=== PATIENT | female | born 1940 | race Two or more races ===

== ENCOUNTER 2016-06-20 13:59 | Outpatient (CLI) | payer MEDICARE, BC ==
[~2016-06-20 13:59] MED LIST: AMBIEN10 M1 ORAL; LEVOTHYROXINE50 MCG ORAL
--- NOTE | 2016-06-20 14:43 | GI Progress Note ---
Assessment/Plan Problems: (1) Abdominal bloating ICD Codes: R14.0 - Abdominal distension (gaseous) SNOMED: 620980113 (2) Colonoscopy planned SNOMED: 074062999 Status: stable Status Narrative Seen with Dr. Bernal. Assessment/Plan Pt will contact to scheduled for EGD/Colonoscopy. - CLD & Suprep instructions given and acknowledged by patient. Subjective Subjective abdominal bloating last visit 02/2015 for rectal bleed, refused colonoscopy at the time last colonoscopy in 2007 Objective T 97.8 BP 111/62 P 65 97 RA WT 131 (denies wt loss) General Appearance: no apparent distress, alert Cardiovascular: normal rate Respiratory/Chest: normal breath sounds, no respiratory distress Abdominal Exam: normal bowel sounds, non tender, soft Extremities: normal range of motion Zena Juarez N.P. June 20, 2016 14:43
[2016-06-20 16:08] VITALS: BP 111/62
== END 2016-06-20 14:30 | disposition home or self-care (01) ==
LOC: PAN 13:59
DX: R14.0 Abdominal distension (gaseous) (principal)
CPT/HCPCS: 99211